=== PATIENT | female | born 2005 | race Caucasian/White ===

== ENCOUNTER 2025-02-10 14:39 | Emergency (ER) | payer OTHER, SELFPAY ==
--- NOTE | 2025-02-10 14:40 | ED_ITS ---
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 Mother reports known peanut allergy but denies history of anaphylaxis. Patient has an Epi-pen but did not have it with her, did not use prior to arrival. Took [address] to the ED. Denies shortness of breath, abdominal pain, nausea. No hives noted, no angioedema, no uvula edema, lungs clear throughout. MD complaint: lips tingling Onset (ago): minute(s) Related Data Previous Rx's ?Medication ?Instructions ?Recorded prednisone 20 mg tablet 20 mg PO DAILY #5 tabs 02/10/25 Allergies Allergy/AdvReac Type Severity Reaction Status Date / Time peanut Allergy Unknown Verified 02/10/25 14:42 Review of Systems Review of Systems: As per HPI Yes all other systems are reviewed and are negative Constitutional: Constitutional: Reports as per HPI Physical Exam ED Vital Signs: Vital Signs - 24 hr 02/10/25 14:41 Temperature 97.8 F Pulse Rate 68 Respiratory Rate 20 Blood Pressure 129/86 Pulse Oximetry 100 Oxygen Delivery Method Room Air BMI result Body Mass Index 20.7 Vital signs have been reviewed and appear to be correct. Blood pressure normal. Heart rate normal. Respiratory rate normal. Temperature normal. Oxygen saturation normal. Const General: cooperative, healthy appearing and no acute distress Orientation/consciousness: oriented to person, oriented to place, oriented to time and patient oriented x3 Limitations: no limitations HENMT Head: Yes normocephalic and Yes atraumatic Ears: external ears normal General nose exam: Normal external nose present and Normal nasal mucous membranes and turbinates present Face and sinus: Yes face symmetric Mouth: Normal oral and palatal mucosa present, lip normal, tongue normal, oropharynx normal, moist mucous membranes, no audible dysphonia, no drooling and no muffled voice Throat: Yes posterior oropharynx normal, Yes uvula midline and No uvular edema Eyes Pupils: Equal, round and reactive pupils present Neck Neck: Yes normal visual inspection and Yes supple Resp Effort & Inspection: normal respiratory effort and able to speak in complete sentences Auscultation: clear to auscultation bilaterally and no wheezes Cardio Rate: regular rate Rhythm: regular rhythm Heart sounds: S1 normal heart sound present and S2 normal heart sound present GI Palpation (GI): Soft to palpation and nontender Auscultation: normoactive bowel sounds General: Yes no CVA tenderness Back/Spine/Pelvis Back: no CVA tenderness Skin General skin exam: no rashes or lesions noted, elasticity normal and turgor normal Neuro General: oriented to person, oriented to place, oriented to time, patient oriented x3, moves all extremities, no focal motor deficits and CN's II-XI intact bilaterally Cranial nerves: Yes Equal, round and reactive pupils present Cognition (Neuro): normal cognition Extrem General: Yes full ROM, Yes no pedal edema and Yes no calf tenderness Psych Mental Status: mental status grossly normal Affect: normal affect Thought process: Normal thought process present Course Course Course Narrative: This is a rapid medical exam performed by Alejo Mckeon NP: Additional HPI, ROS, PE not included below will be deferred to primary provider. 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 Mother reports known peanut allergy but denies history of anaphylaxis. Took [address] to the ED. Denies shortness of breath, abdominal pain, nausea. No hives noted, no angioedema, no uvula edema, lungs clear throughout. Plan: famotidine and prednisone ordered, monitor Medications Administered Discontinued Medications Generic Name Dose Route Start Last Admin Trade Name Freq PRN Reason Stop Dose Admin Famotidine 20 mg 02/10/25 14:43 02/10/25 14:48 Famotidine 20 Mg Tablet PO 02/10/25 14:44 20 mg ONCE ONE Administration Prednisone 60 mg 02/10/25 14:43 02/10/25 14:48 Prednisone 20 Mg Tablet PO 02/10/25 14:44 60 mg ONCE ONE Administration Medical Decision Making Medical Decision Making MDM Narrative: Patient is a 19-year-old female presenting to the ED with grandmother and mother with complaint of tongue and throat feeling prickly, after eating peanuts [employer]IST. On exam patient is awake, A+Ox3, VS WNL, afebrile, normal neurological exam without focal deficits, physical exam findings as above. Given reported symptoms and physical exam findings, initial differential includes but is not limited to allergic reaction, oral allergy syndrome. Do not suspect anaphylaxis as patient has no respiratory compromise, is normotensive, no rash, no GI symptoms. Patient medicated self with cetirizine prior to arrival and given famotidine and pepcid in the ED, monitored for 1.5 hours with improvement in symptoms, no new symptoms. Feel patient is stable for discharge home. Advised mother patient can continue to take cetirizine at home. Discussed symptoms for which they should return to the ED/call 911. Patient and mother verbalized understanding of and agreement with plan. Differential Diagnosis Differential Diagnoses: The differential diagnosis associated with the presentation includes as per [facility] Admission/Observation Consideration of admission/observation: Escalation of care including admission/observation considered Patient would have been admitted to the hospital had their work up had any findings where hospital admission was appropriate and their clinical presentation warranted hospital admission. Independent Historian Clinical information obtained from an independent historian. History obtained from or confirmed by: Parent (Clinical information obtained from mother and grandmother who also confirmed patient's reported history) External Record Review External record reviewed: Inpatient record, Office record and Outpatient record Discharge Plan Discharge Clinical Impression: Allergic reaction Patient Disposition: Home, Self-Care Instructions: General Allergic Reaction (ED) Additional Instructions: You were evaluated in the emergency department today for an allergic reaction. You have been given medications to control your symptoms. You have been observed for several hours in the emergency department and you are stable for discharge at this time. You can take Zyrtec and Pepcid, which are available sviy-eog-egzlfea, to help control your symptoms at home. You have also been given a prescription for steroids, please take them as directed. Please schedule an appointment with your primary care physician for follow-up. Return to the emergency department if you experience rashes, difficulty breathing or swallowing, lip/mouth/tongue swelling, vomiting, or for any other concerning symptoms. Prescriptions: New prednisone 20 mg tablet 20 mg PO DAILY Qty: 5 0RF Print Language: Dominican
[2025-02-10 14:41] VITALS: BP 129/86; PULSE 68; RESP 20; TEMP 36.6; O2SAT 100; BMI 20.7
[2025-02-10] MEDS: Famotidine 20 MG TABLET PO (14:48)
[2025-02-10] MEDS: predniSONE 20 MG TABLET 60 MG PO (14:48)
[2025-02-10 16:23] VITALS: BP 104/67; PULSE 60; RESP 16; TEMP 36.6; O2SAT 98
--- OUTSIDE RECORDS SUMMARY | 2025-02-10 18:23 | XMS_ITS | Clinical Summary ---
Author Organization [place], [place] Address [address] [place] [address] Phone Care Team Providers Care Social Media Sr Strategy Manager Name Role Phone Sylvia Ragland MD Primary Care Provider [phone] Medications ENSKYCE 0.15-30 MG-MCG TABS Take 1 Tablet by mouth daily. 07/29/2023 Active Pantoprazole Sodium 20 mg TAB EC 08/04/2023 Active penicillin V potassium (VEETID) 500 mg tablet TAKE 1 TABLET BY MOUTH EVERY 8 HOURS FOR 10 DAYS 11/29/2023 Active sertraline (ZOLOFT) 50 mg tablet Take 50 mg by mouth daily. 10/18/2023 Active sertraline (ZOLOFT) 25 mg tablet TAKE ORALLY 3 TABLETS DAILY 11/18/2023 Active Active Problems Problem Noted Date Diagnosed Date Anxiety 12/12/2023 Viral exanthem 12/12/2023 Social History Tobacco Use Types Packs/Day Years Used Date Smoking Tobacco: Never Assessed Comments Unknown Sex and Gender Information Value Date Recorded Sex Assigned at Not on file Legal Sex Female 4:03 PM EST Gender Identity Not on file Sexual Orientation Not on file Last Filed Vital Signs Vital Sign Reading Time Taken Comments Blood Pressure - - Pulse 74 12/12/2023 12:08 PM EST Temperature 37.1 ??C (98.7 ??F) 12/12/2023 1 2:08 PM EST Respiratory Rate - - Oxygen Saturation 100% 12/12/2023 12: 08 PM EST Inhaled Oxygen Concentration - - Weight 60.7 kg (133 lb 12.8 oz) 024 12:08 PM EST Height 167.6 cm (5' 6 ) 11/29/2022 3:37 PM EST Body Mass Index 21.6 11/29/2022 3:37 PM EST Plan of Treatment Health Maintenance Due Date Last Done Comments WELLNESS VISIT 2007 HPV VACCINES NEMOURS (1 - 3-dose series) 2019 Lipid Panel Screening 2021 COVID-19 VACCINE ( season) 2024 10/23/2021, 03/09/2021, 02/16/2021 INFLUENZA VACCINE (PRIMARY CARE) (#1) 2024 08/14/2019, 08/08/2018, 08/07/2017, Additional history exists HEPATITIS B VACCINES (PRIMARY CARE) Completed 09/02/2005, 01/02/2005, 2004 HEPATITIS A VACCINES (PRIMARY CARE) Completed 03/24/2007, 09/04/2006 VARICELLA VACCINES (PRIMARY CARE) Completed 09/29/2008, 09/02/2005 MENINGOCOCCAL VACCINE (PRIMARY CARE) Aged Out No longer eligible based on patient's age to complete this topic Insurance Care Teams Social Media Sr Strategy Manager Relationship Specialty Start Date End Date Sylvia Ragland MD [address] [place] [address] [address] [place] [address] PCP - General Primary Care Pediatrics 10/27/22
--- OUTSIDE RECORDS SUMMARY | 2025-02-10 18:23 | XMS_ITS | Encounter Summary ---
Author Organization [facility] Address [address] [place] [address] Care Team Providers Care Hyperbaric Nurse Name Role Phone Mia Rios MD Primary Care Provider [phone] Encounter Details Date Type Department Care Team ([facility] st Contact Info) Description 03/18/2023 Abstract LG at [facility] [address] [place] [address] [place] [id number] Priscilla Diaz CMA Social History Tobacco Use Types Packs/Day Years Used Date Smoking Tobacco: Never Smokeless Tobacco: Never Tobacco Cessation:Counseling Given: Not Answered Alcohol Use Standard Drinks/Week Comments Never 0 (1 standard drink = 0.6 oz pur e alcohol) Comments Unknown Sex and Gender Information Value Date Recorded Sex Assigned at Not on file Legal Sex Female 8:10 AM EDT Gender Identity Not on file Sexual Orientation Not on file documented as of this encounter Plan of Treatment Not on file documented as of this encounter Visit Diagnoses Not on filedocumented in this encounter Care Teams Hyperbaric Nurse Relationship Specialty Start Date End Date Mia Rios MD [address] [place] [address] [place] [address] PCP - General Family Practice 03/18/23 documented as of this encounter
--- OUTSIDE RECORDS SUMMARY | 2025-02-10 18:23 | XMS_ITS | Clinical Summary ---
Author Organization [facility] Address [address] [place] [address] Care Team Providers Care Elevator Repair Mechanic Name Role Phone Michael Person MD Primary Care Provider [phone] Allergies Active Allergy Reactions Criticality Noted Date Comments Peanut 06/04/2023 Medications sertraline (ZOLOFT) 50 mg tablet Take 50 mg by mouth daily. 3 Active EPINEPHrine (EPIPEN) 0.3 mg/0.3 mL injection syringe EPINEPHrine 0.3 MG/0.3ML Injection Solution Auto-injector QTY: 0 Days: 0 Refills: 0 Written: 06/04/23 Patient Instructions: 3 Active ENSKYCE 0.15-0.03 mg per tablet Take 1 tablet by mouth daily. 3 Active pantoprazole (PROTONIX) 20 mg EC tablet 3 Active Active Problems Problem Noted Date Diagnosed Date Periodic headache syndrome, not intractable 02/2024 Gastroesophageal reflux disease without esophagi tis 08/04/2023 10/31/2023 OCD (obsessive compulsive disorder) Anxiety Family History Medical History Relation Name Comments Hyperlipidemia Biological Father Breast cancer Biological Mother Parkinsonism Maternal Grandfather Heart disease Paternal Grandfather Breast cancer Paternal Grandmother Relation Name Status Comments Biological Father Alive Biological Mother Alive Maternal Grandfather Paternal Grandfather Paternal Grandmother Social History Tobacco Use Types Packs/Day Years Used Date Smoking Tobacco: Never Smokeless Tobacco: Never Alcohol Use Standard Drinks/Week Comments Yes 0 (1 standard drink = 0.6 oz pur e alcohol) very rare Comments Unknown Sex and Gender Information Value Date Recorded Sex Assigned at Not on file Legal Sex Female 1:13 AM EST Gender Identity Not on file Sexual Orientation Not on file Occupation Industry Job Start Date Job End Date [employer] Not on file Not on file Not on file Last Filed Vital Signs Vital Sign Reading Time Taken Comments Blood Pressure 100/60 10/31/2023 10:58 AM EST Pulse 88 10/31/2023 10:58 AM EST Temperature 36.7 ??C (98 ??F) 10/31/2023 10:58 AM EST Respiratory Rate 14 10/31/2023 10:58 AM EST Oxygen Saturation 98% 10/31/2023 10:58 AM EST Inhaled Oxygen Concentration - - Weight 58.7 kg (129 lb 6.4 oz) 10/31/2023 10:58 AM EST Height 166.4 cm (5' 5.5 ) 10/31/2023 10:58 AM ES T Body Mass Index 21.21 10/31/2023 10:58 AM EST Plan of Treatment Upcoming Encounters Date Type Department Care Team (Late st Contact Info) Description 03/18/2025 10:30 AM EDT Office Visit [facility] [address] [place] [address] Michael Person MD [address] [facility] [address] [place] [address] Health Maintenance Due Date Last Done Comments Depression Screening 2016 HIV Screening 2017 HPV Vaccines (1 - 3-dose series) 2019 Meningococcal B (1 of 2 - Standard) 2020 Hepatitis C Screening 2022 DTaP, Tdap, and Td Vaccines (1 - Tdap) 2023 Hepatitis B Vaccines (1 of 3 - 19+ 3-dose series) 2023 COVID-19 Vaccine (1 - 2023-2 5 season) 2024 Influenza Vaccine (Season Ended) 2025 Zoster Vaccine (1 of 2) 2054 RSV Vaccine (1 - 1-dose 75+ series) 2079 HIB Vaccines Aged Out No longer eligi ble based on patient's age to complete this topic IPV Vaccines Aged Out No longer eligi ble based on patient's age to complete this topic Meningococcal ACWY Aged Out No longer eligible based on patient's age to complete this topic Pneumococcal Aged Out No longer eligi ble based on patient's age to complete this topic RSV <20 months Aged Out No longer yo gible based on patient's age to complete this topic Care Teams Elevator Repair Mechanic Relationship Specialty Start Date End Date Michael Person MD [address] [facility] [address] [place] [address] PCP - General Internal Medicine 10/31/23
--- OUTSIDE RECORDS SUMMARY | 2025-02-10 18:23 | XMS_ITS ---
Author Organization [facility] Address [address] [place] [address] Care Team Providers Care Shift Boss Name Role Phone MariliaWisammingo Primary Care Provider Solomon Phillips [phone] REASON FOR VISIT 04/05/24 PN 8.43 (04/14) Encounters Encounter Location Date Provider Diagnosis [facility] [address] [place] [address] 04/08/2024 A Aureliano Be Plan Of Treatment Next Appt Details Provider Name:Solomon kurtz, 03/15/2025 01:30:00 PM, [address], [address], [place], [address], Progress Notes * Jessika QUIROZ MDOB:2005 (18 yo F)Acc No.[id number]:04/08/2024 Patient:?Jessika QUIROZ :2005???Age:18 Y???Sex:Female Address:[address] [place] [address] * true * Date:? Generated for Printi ng/Fateresog/eTransmitting on:?02/10/2025 06:23 PM EDT
--- OUTSIDE RECORDS SUMMARY | 2025-02-10 18:23 | XMS_ITS | Patient Health Record ---
Author Organization [facility] Address [address] [place] [address] Care Team Providers Care Volcanologist Name Role Phone Michael Person M.D. Primary Care Provider Omar Garcia [phone] Allergies Allergen (clinical drug ingredient) Drug/Non Drug Allergy documented on EMR Reaction Allergy Type Onset Date Status peanut allergenic extract Peanut (Diagnostic) Unknown Drug Allergy Active Reason For Referral No Information Medications Medication SIG (Take, Route, Fr equency, Duration) Notes Start Date End Date Status Zeasorb-AF 2 % According to directi ons provided on package Externally Twice a day for 30 days 03/18/2024 Active Naftin 2 % 1 application Fast Food Worker ally Once a day for 14 day(s) 03/18/2024 Active Zoloft 100 MG 1 tablet Orally Once a day Active Domeboro 16% as directed External ly Daily for 30 days 03/18/2024 Active Ketoconazole 2 % 1 application to aff ected area Externally Twice a day for 30 days 03/18/2024 Active Social History Tobacco Use: Social History Observation Description Date Details (start date - stop date) Never Smoker NA - NA Tobacco Use/Smoking Question Answer Notes Are you a nonsmoker Problems Problem Type SNOMED Code ICD Code Onset Dates Problem Status W/U Status Risk Notes Problem 823329303 Hammer toe of right foot (M20.41) Active confirmed Problem 7386449 Tinea pedis of both feet (B35.3) Active confirmed Problem 567155551 Bullae (R23.8) Active confirmed Problem 531162868 Onychomycosis (B35.1) Active confirmed Vital Signs BMI Percentile 61.09 % 03/18/2024 Height 65inches in 03/18/2024 Weight 136 lbs 03/18/2024 BMI 22.63 kg/m2 03/18/2024 Encounters Encounter Location Date Provider Diagnosis [facility] [address] [place] [address] 03/18/2024 Omar Louise Tinea pedis of both feet B35.3 ; Onychomycosis B35.1 ; Hammer toe of right foot M20.41 and Bullae R23.8 Assessments Encounter Date Diagnosis (ICD Code) Assessment Notes Treatment Notes Treatment Clinical Notes Section Notes 03/18/2024 Tinea pedis of both feet (ICD-10 - B35.3) 03/18/2024 Onychomycosis (ICD-10 - B35.1) 03/18/2024 Hammer toe of right foot (ICD-10 - M20.41) 03/18/2024 Bullae (ICD-10 - R23.8) Plan Of Treatment No Information Insurance Providers Payer Name Payer Address Payer Phone Subscriber Number Group Number Insured Name Patient Relationship to Insured Coverage Start Date Coverage End Date [facility] [address] [place] [address] [phone] [id number] Jessika Quiroz Self - patient is the insured 8 Medical (General) History Surgical History Surgery Date(Month/Year) denies previous surgery Hospitalization History Reason Date(Month/Year) see above
--- OUTSIDE RECORDS SUMMARY | 2025-02-10 18:23 | XMS_ITS ---
Author Organization [facility] Address [address] [place] [address] Care Team Providers Care Patient Services Coordinator Name Role Phone Marilia John Primary Care Provider Solomon Phillipsffrey Unavailable [phone] Allergies Allergen (clinical drug ingredient) Drug/Non Drug Allergy documented on EMR Reaction Allergy Type Onset Date Status peanut allergenic extract Peanut (Diagnostic) anaphylaxis Drug Allergy Active Results Component Value Reference Range Notes W296-AyL Peanut Reviewed date:04/08/2024 08:41:56 AM Interpretation: Performing Lab:[facility] [id number], Phone - [phone], Director - MDJodry Notes/Report: C053-LwZ Peanut 8.43 Class IV kU/L IgE Peanut Component Profile Reviewed date:04/08/2024 08:41:56 AM Interpretation: Performing Lab:[facility], [address] [place] [id number], Phone - [phone], Director - MDJodry Notes/Report: Class Description Levels of Specific IgE Class Description of Class ----- < 0.10 0 Negative 0.10 - 0.31 0/I Equivocal/Low 0.32 - 0.55 I Low 0.56 - 1.40 II Moderate 1.41 - 3.90 III High 3.91 - 19.00 IV Very High 19.01 - 100.00 V Very High >100.00 Very High K564-NyQ Nataliia h 1 0.75 Class II kU/L D807-DrM Nataliia h 2 1.20 Class II kU/L L798-XbP Nataliia h 3 <0.10 Class 0 kU/L C115-IhU Nataliia h 6 1.01 Class II kU/L Z365-LrY Nataliia h 8 <0.10 Class 0 kU/L K806-QwO Nataliia h 9 0.92 Class II kU/L REASON FOR VISIT last visit 07/2022, food allergy Medications Medication SIG (Take, Route, Frequency, Duration) Notes Start Date End Date Status Zoloft 100 MG 1 tablet Orally Once a day Active Auvi-Q 0.3 mg use as directed for anaphylaxis IM once for 30 days Active EPINEPHrine 0.3 MG/0.3ML as directed Inj ection as needed for 30 days 07/30/2022 Not-Taking Zyrtec allergy childrens 10 MG 1 tablet at bedtime orally Once daily for 30 days Active EPINEPHrine 0.3 MG/0.3ML as directed Inj ection as needed for 30 days Active Vital Signs Blood pressure systolic 109 mm Hg 03/16/20 24 Blood pressure diastolic 61 mm Hg 024 Heart Rate 65 /min 03/16/2024 Height 65.1 in 03/16/2024 Weight 136 lbs 03/16/2024 BMI 22.56 kg/m2 03/16/2024 BMI Percentile 60.37 % 03/16/2024 Procedures Procedure Date Ordered Date Performed Result Body Sit e SKIN TEST, PRICK 03/16/2024 N/A Encounters Encounter Location Date Provider Diagnosis [facility] [address] [place] [address] 03/16/2024 A Aureliano Be Dermatitis due to ingested food L27.2 and Allergy to peanuts Z91.010 Assessments Encounter Date Diagnosis (ICD Code) Assessment Notes Treatment Notes Treatment Clinical Notes Section Notes 03/16/2024 Dermatitis due to ingested food (ICD-10 - L27.2) .......... .............Ski n testing 07/30/22 ....peanut 15mm..... .............Ski n testing today .03/16/24......pe anut 8mm.. ..... skin test small ; will order RAST/lab test, and administer diagnostic oral ingestion challenge if labs indicate it is safe to do so .(otherwise will recheck s.t. 02/2025)......... ... .... ............ Strictly avoid _ __ _-peanut_ _ _ and have an EPIPEN Twinpack available for emergency use at all times, in case of accidental ingestion and reaction develops. If accidental ingestion occurs, but NO symptoms develop, watch/monitor closely for several hours, DO NOT administer any medications (have the EPIPEN available). If accidental ingestion occurs, and symptoms develop, immediately administer the EPIPEN, give benadryl, and call 911 (Epinephrine will only last ~20 minutes,, and symptoms may redevelop at that time _ _ if you are not in the ER by then, administer the second EPIPEN). ........... ((((( INFO RE: EPINEPHRINE SAFETY: Epinephrine is safe, and you already have epinephrine in your body Epinephrine is a naturally occurring hormone. It is the hormone that is part of our xtsbu-wh-gdssql response. When you are scared or excited, and also when you are exercising, your epinephrine levels surge, but even when you sleep, there is a little epinephrine circulating in your body. An injection from your epinephrine device will increase your level of epinephrine to the range seen under stressful circumstances. Since you have at some point in your life experienced stress, you have already been exposed to the effects of high levels of epinephrine. If you were given the injection right now, all that would likely happen is that your heart rate and blood pressure would increase to a moderate degree and that you might feel slightly shaky. Epinephrine is metabolized very quickly, and you would not feel this effect for long. _ __ __ _ Why You Should Go to the Emergency Room (ER) After Using the Epinephrine: you should go to the ER after using your epinephrine device. That\'s not because of the epinephrine; it\'s because the allergic reaction probably requires further monitoring. Many patients also need more than one dose of epinephrine or other emergency treatments; that may be due to the severity of the allergic reaction or simply because the device was not used correctly (the most common mistake is not holding the device against your thigh for the time required for the full dose of medication to be delivered). So a trip to the ER is the safest thing to do after using epinephrine. _ _- 03/16/2024 Allergy to peanuts (ICD-10 - Z91.010) Plan Of Treatment Medication Medication Name Sig Start Date Stop Date Notes Auvi-Q 0.3 mg use as directed for anaphylaxis IM once for 30 days Zyrtec allergy childrens 10 MG 1 tablet at bedtime orally Once daily for 30 days EPINEPHrine 0.3 MG/0.3ML as directed Inj ection as needed for 30 days Treatment Notes Assessment Notes Dermatitis due to ingested food .......... .............Skin testing 07/30/22 ....peanut 15mm..... .............Skin testing today .03/16/24......peanut 8mm.. ..... skin test small ; will order RAST/lab test, and administer diagnostic oral ingestion challenge if labs indicate it is safe to do so .(otherwise will recheck s.t. 02/2025)............ .... ............ Strictly avoid _ __ _-peanut_ _ _ and have an EPIPEN Twinpack available for emergency use at all times, in case of accidental ingestion and reaction develops. If accidental ingestion occurs, but NO symptoms develop, watch/monitor closely for several hours, DO NOT administer any medications (have the EPIPEN available). If accidental ingestion occurs, and symptoms develop, immediately administer the EPIPEN, give benadryl, and call 911 (Epinephrine will only last ~20 minutes,, and symptoms may redevelop at that time _ _ if you are not in the ER by then, administer the second EPIPEN). ........... ((((( INFO RE: EPINEPHRINE SAFETY: Epinephrine is safe, and you already have epinephrine in your body Epinephrine is a naturally occurring hormone. It is the hormone that is part of our jxmeu-bi-csjrue response. When you are scared or excited, and also when you are exercising, your epinephrine levels surge, but even when you sleep, there is a little epinephrine circulating in your body. An injection from your epinephrine device will increase your level of epinephrine to the range seen under stressful circumstances. Since you have at some point in your life experienced stress, you have already been exposed to the effects of high levels of epinephrine. If you were given the injection right now, all that would likely happen is that your heart rate and blood pressure would increase to a moderate degree and that you might feel slightly shaky. Epinephrine is metabolized very quickly, and you would not feel this effect for long. _ __ __ _ Why You Should Go to the Emergency Room (ER) After Using the Epinephrine: you should go to the ER after using your epinephrine device. That\'s not because of the epinephrine; it\'s because the allergic reaction probably requires further monitoring. Many patients also need more than one dose of epinephrine or other emergency treatments; that may be due to the severity of the allergic reaction or simply because the device was not used correctly (the most common mistake is not holding the device against your thigh for the time required for the full dose of medication to be delivered). So a trip to the ER is the safest thing to do after using epinephrine. _ _- Pending Test Test Name Order Date SKIN TEST, PRICK 03/16/2024 Next Appt Details Follow Up: 1 Year, Reason: a llergy recheck,skin test - STOP ALL ANTIHISTAMINES 1 WEEK PRIOR TO APPOINTMENT Provider Name:Solomon kurtz, 03/15/2025 01:30:00 PM, [address] [facility], [address], [place], [address], Procedure Notes * Category Sub-Category Detail Notes Allergy testing Skin test result: peanut 8mm Progress Notes * Jessika QUIROZ MDOB:2005 (18 yo F)Acc No.[id number]:03/16/2024 Progress Notes Patient:?Jessika QUIROZ Provider:?Alex Be M.D. :2005???Age:18 Y???Sex:Female D ate:03/16/2024 Address:[address] [place] [address], [facility] Pcp:John Capellan Subjective: * Chief Complaints: * ???Last visit 07/2022Food dirk porras * HPI: ???Food Allergy / reaction:?last visit 07/2022. Patient has been avoiding foods of concern with no accidental exposures or ingestions since last visit; has Epipen on hand for emergency use. ((......peanut.......)). * ROS:?General/Constitutional:?Fatigue?denies.?Fever?denies.?Allergy/Immunology:?Immune problems?denies.?Frequent infection?denies.?Ophthalmologic:?Redness?denies.?Infection?denies.?Discharge?denies.?ENT:?Sinusitis?denies.?Snoring?denies.?Sleep apnea?denies.?Respiratory:?Pneumonia?denies.?Bronchitis?denies.?Cardiovascular:?chest pain?denies.?palpitations?denies.?Gastrointestinal:?Reflux?denies.?Abdominal pain?denies.?Musculoskeletal:?Muscle pain?denies.?Joint pain?denies.?Skin:?Infection?denies.?Hives?denies.?Neurologic:?Behavioral problems?denies.?Headache?denies.? * Medical History:? * Surgical History:?cieradom mera 03/2021 * Hospitalization/Major Diagno stic Procedure:?Denies Past Hospitalization * Medications:?TakingZoloft 10 0 MG Tablet 1 tablet Orally Once a day Taking Zoloft 100 MG Tablet 1 tablet Orally Once a day Not-Taking/PRNAuvi-Q 0.3 mg injection use as directed for anaphylaxis IM once Zyrtec allergy childrens 10 MG Chewable tablet 1 tablet at bedtime orally Once daily EPINEPHrine 0.3 MG/0.3ML Solution Auto- injector as directed Injection as needed Medication List reviewed and reconciled with the patientNot-Taking/PRN Auvi-Q 0.3 mg injection use as directed for anaphylaxis IM once Not-Taking/PRN Zyrtec allergy childrens 10 MG Chewable tablet 1 tablet at bedtime orally Once daily Not-Taking/PRN EPINEPHrine 0.3 MG/0.3ML Solution Auto-injector as directed Injection as needed Medication List reviewed and reconciled with the patient * Allergies:?Peanut (Diagnosti c): anaphylaxis - Allergyno[Allergies Verified] Objective: * Vitals:?Ht: 65.1 in, Wt:136, HR:65/min, BP:109/61mm Hg, Initials: dek, Ht %: 62.42 %, BMI %: 60.37 %, BMI:22.56Index, Wt %: 64.47 %. * Examination: ???General Examination: ?GENERAL APPEARANCE:?alert, in no acute distress.?EYES:?no discharge, conjunctivae clear, lids normal, pupils equal, iris normal bilaterally.?EARS:?tympanic membranes normal, external auditory canals normal.?NOSE:?nasal mucosa/turbinates non-edematous, septum intact, septum midline.?THROAT:?oropharynx normal.?NECK/THYROID:?normal appearance and palpation, thyroid normal.?LYMPH NODES:?no cervical adenopathy.?HEART:?regular rate and rhythm, no murmurs, heart sounds normal, no peripheral edema.?LUNGS:?clear to auscultation bilaterally, no increased respiratory effort.?ABDOMEN:?non-tender, no masses, no hepatosplenomegaly.?MUSCULOSKELETAL:?normal gait/station for age, digits/nails normal with no cyanosis or clubbing.?SKIN:?palpation normal, warm and dry, no rashes or lesions.? Assessment: * Assessment: 1.?Dermatitis due to ingeste d food - L27.2 (Primary)?2.?Allergy to peanuts - Z91.010? Plan: * Treatment: 2.?Allergy to peanuts?LAB: Q124-WvJ Peanut ?LAB: IgE Peanut Component Profile ?Procedure: SKIN TEST, PRICK 3.?Others? Refill Auvi-Q injection, 0.3 mg, use as directed for anaphylaxis, IM, once, 30 days, 1 box, Refills 0;?Refill Zyrtec allergy childrens Chewable tablet, 10 MG, 1 tablet at bedtime, orally, Once daily, 30 days, 30, Refills 5;?Start EPINEPHrine Solution Auto-injector, 0.3 MG/0.3ML, as directed, Injection, as needed, 30 days, 2 Packs, Refills 1.?? * Procedures:?Allergy testing:?Skin test result:?peanut 8mm.? * Procedure Codes:?43358 SKIN TEST, PRICK, Units: 3.00 * Follow Up:?1 Year (Reason: a llergy recheck,skin test - STOP ALL ANTIHISTAMINES 1 WEEK PRIOR TO APPOINTMENT) * * Sign off status: Completed true * Provider:?Alex Be M.D. Date: ?03/16/2024 Generated for Mitra meza/Dorcas/Alirezasmitting on:?02/10/2025 06:23 PM EDT History and Physical Notes * HPI (History of Present Illness) Category Sub-Category Detail Notes Category Not es Food Allergy / reaction last visit 07/2022. Patient has been avoiding foods of concern with no accidental exposures or ingestions since last visit; has Epipen on hand for emergency use. ((......peanut.......)) Examination Category Sub-Category Detail Notes Category Not es General Examination GENERAL APPEARANCE: alert, in no a cute distress EYES: no discharge, conjun ctivae clear, lids normal, pupils equal, iris normal bilaterally EARS: tympanic membranes n ormal, external auditory canals normal NOSE: nasal mucosa/turbina tiburcio non-edematous, septum intact, septum midline THROAT: oropharynx normal NECK/THYROID: normal appearance an d palpation, thyroid normal HEART: regular rate and rhy thm, no murmurs, heart sounds normal, no peripheral edema LUNGS: clear to auscultatio n bilaterally, no increased respiratory effort ABDOMEN: non-tender, no julius s, no hepatosplenomegaly SKIN: palpation normal, wa rm and dry, no rashes or lesions MUSCULOSKELETAL: normal gait/station for age, digits/nails normal with no cyanosis or clubbing LYMPH NODES: no cervical adenopat hy
--- OUTSIDE RECORDS SUMMARY | 2025-02-10 18:24 | XMS_ITS | Patient Health Record ---
Author Organization [facility] Address [address] [place] [address] Care Team Providers Care Stock Control Supervisor Name Role Phone Caseyharley John Primary Care Provider Solomon Phillips Aureliano Unavailable [phone] Allergies Allergen (clinical drug ingredient) Drug/Non Drug Allergy documented on EMR Reaction Allergy Type Onset Date Status peanut allergenic extract Peanut (Diagnostic) anaphylaxis Drug Allergy Active Results Component Value Reference Range Notes D853-FyI Peanut Reviewed date:04/08/2024 08:41:56 AM Interpretation: Performing Lab:[facility], [address] [place] [id number], Phone - [phone], Director - MDJodry Notes/Report: I300-UqC Peanut 8.43 Class IV kU/L IgE Peanut Component Profile Reviewed date:04/08/2024 08:41:56 AM Interpretation: Performing Lab:[facility], [address] [place] [id number], Phone - [phone], Director - MDJodry Notes/Report: Class Description Levels of Specific IgE Class Description of Class ----- < 0.10 0 Negative 0.10 - 0.31 0/I Equivocal/Low 0.32 - 0.55 I Low 0.56 - 1.40 II Moderate 1.41 - 3.90 III High 3.91 - 19.00 IV Very High 19.01 - 100.00 V Very High >100.00 Very High J754-MbH Nataliia h 1 0.75 Class II kU/L I188-KpH Nataliia h 2 1.20 Class II kU/L V956-JjU Nataliia h 3 <0.10 Class 0 kU/L W059-BpT Nataliia h 6 1.01 Class II kU/L Q882-BiG Nataliia h 8 <0.10 Class 0 kU/L U542-PzE Nataliia h 9 0.92 Class II kU/L Reason For Referral No Information Medications Medication SIG (Take, Route, Frequency, Duration) [...] ection as needed for 30 days Active Problems Problem Type SNOMED Code ICD Code Onset Dates Problem Status W/U Status Risk Notes Problem [id number] Generalized skin eruption due to drugs and medicaments taken internally (L27.0) Active confirmed Problem Ingestion dermatitis caused by food (072804381) Dermatitis due to ingested food (L27.2) Active confirmed Problem Allergy to peanuts (92720513) Allergy to peanuts (Z91.010) Active confirmed Problem Adverse reaction to drug (81519776) Adverse effect of penicillins, subsequent encounter (T36.0X5D) Active confirmed Vital Signs Heart Rate 65 /min 03/16/2024 Blood pressure diastolic 61 mm Hg 03/16/2024 Height 65.1 in 03/16/2024 BMI Percentile 60.37 % 03/16/2024 Blood pressure systolic 109 mm Hg 03/16/2024 Weight 136 lbs 03/16/2024 BMI 22.56 kg/m2 03/16/2024 Procedures Procedure Date Ordered Date Performed Result Body Sit e SKIN TEST, PRICK 03/16/2024 N/A Encounters Encounter Location Date Provider Diagnosis [facility] [address] [place] [address] 03/16/2024 A Aureliano Be Dermatitis due to ingested food L27.2 and Allergy to peanuts Z91.010 [facility] [address] [place] [address] 04/08/2024 Solomon Be [facility] [address] [place] [address] 04/07/2024 Solomon Be Assessments Encounter Date Diagnosis (ICD Code) Assessment [...] the hormone that is part of our hkdow-ep-bhmxpl response. When you are scared or excited, [...] peanuts (ICD-10 - Z91.010) Plan Of Treatment Pending Test Test Name Order Date SKIN TEST, PRICK 10/10/2015 SKIN TEST, PRICK 11/25/2016 SKIN TEST, PRICK 04/13/2018 SKIN TEST, PRICK 04/12/2019 SKIN TEST, PRICK 06/19/2021 SKIN TEST, PRICK 07/30/2022 SKIN TEST, PRICK 03/16/2024 INGESTION (FOOD) CHALLENGE TESTING FIRST 2 HOURS 06/21/2021 SKIN TEST, PRICK/ID (Drug/Biological) [id number] Peanut 04/17/2020 IgE Peanut Component Profile 04/17/2020 Next Appt Details Provider Name:Solomon kurtz, 03/15/2025 01:30:00 PM, [address], [address], [place], [address], Insurance Providers Payer Name Payer Address Payer Phone Subscriber Number Group Number Insured Name Patient Relationship to Insured Coverage Start Date Coverage End Date [facility] [address] [place], [place] [id number] Matt Quiroz Natural Child - Insured has Financial Responsibility 4 Medical (General) History Medical History History ICD Code pt born full-term, no complications: Yes Stinging Insect History: Never been stun g speech therapy, lisp Depression, OCD Surgical History Surgery Date(Month/Year) wisdom teeth 03/2021
--- OUTSIDE RECORDS SUMMARY | 2025-02-10 18:24 | XMS_ITS ---
Author Organization [facility] Address [address] [place] [address] Care Team Providers Care Research Statistician Name Role Phone John Capellan Primary Care Provider Solomon Phillips [phone] REASON FOR VISIT blood work Encounters Encounter Location Date Provider Diagnosis [facility] [address] [place] [address] 04/07/2024 Solomon Be Plan Of Treatment Next Appt Details Provider Name:Solomon kurtz, 03/15/2025 01:30:00 PM, [address], [address], [place], [address], Progress Notes * Jessika QUIROZ MDOB:2005 (18 yo F)Acc No.[id number]:04/07/2024 Patient:?Jessika QUIROZ :2005???Age:18 Y???Sex:Female Address:[address] [place] [address] * true * Date:? Generated for Printi ng/Faxing/eTransmitting on:?02/10/2025 06:24 PM EDT
--- OUTSIDE RECORDS SUMMARY | 2025-02-10 18:24 | XMS_ITS ---
Author Organization [facility] Address [address] [place] [address] Care Team Providers Care Expressive Art Therapist Name Role Phone Michael Person M.D. Primary Care Provider Omar Garcia [phone] Allergies Allergen (clinical drug ingredient) Drug/Non Drug Allergy documented on EMR Reaction Allergy Type Onset Date Status peanut allergenic extract Peanut (Diagnostic) Unknown Drug Allergy Active REASON FOR VISIT Calluses Medications Medication SIG (Take, Route, Fr equency, Duration) Notes Start Date End Date Status Zeasorb-AF 2 % According to directi ons provided on package Externally Twice a day for 30 days 03/18/2024 Active Naftin 2 % 1 application Leather Cartridge Belt Maker ally Once a day for 14 day(s) [...] Problem Status W/U Status Risk Notes Problem 3318164 Tinea pedis of both feet (B35.3) Active confirmed Problem 152818421 Onychomycosis (B35.1) Active confirmed Problem 136997971 Hammer toe of right foot (M20.41) Active confirmed Problem [id number] Bullae (R23.8) Active confirmed Vital Signs Height 65inches in 03/18/2024 Weight 136 lbs 03/18/2024 BMI 22.63 kg/m2 03/18/2024 BMI Percentile 61.09 % 03/18/2024 Encounters Encounter Location Date Provider Diagnosis [facility] [address] [place] [address] 03/18/2024 Omar Louise Tinea pedis of both [...] Bullae (ICD-10 - R23.8) Plan Of Treatment Medication Medication Name Sig Start Date Stop Date Notes Zeasorb-AF 2 % According to directi ons provided on package Externally Twice a day for 30 days 03/18/2024 Naftin 2 % 1 application Leather Cartridge Belt Maker ally Once a day for 14 day(s) 03/18/2024 Domeboro 16% as directed Externally Daily for 30 days 02/25 Ketoconazole 2 % 1 application to aff ected area Externally Twice a day for 30 days 03/18/2024 Next Appt Details Follow Up: prn, Reason: Procedure Notes * Category Sub-Category Detail Notes I & D Discussion/Consent A discussion about the procedure took place Anesthesia Topical anesthesia w as given to the area Prep The abscessed area w as prepped with an alcohol scrub Procedure The site was incised and drained Bandage A dry dressing was a pplied to the area Instructions Instr. pt. to redres s area with antibiotic ointment Culture Not enough purulence was present to culture Soak Instr. the pt. to soak their foot in epsom salt and redress with ABX ointment daily. If erythema does not resolve in a few days or pain returns to come back itno the office Nail Debridement Fungal Nails Debrided Nails sha rply debrided in thickness and length Trimmed long nails Remaining nails were trimmed in length Corns/Calluses Debridement All corns and ca lluses were debrided in thickness Progress Notes * Jessika QUIROZDOB:2005 ( 18 yo F)Acc No.[id number]:03/18/2024 Progress Notes Patient:?Jessika QUIROZ Appointment Provider:?Omar Louise DPM :2005???Age:18 Y???Sex:Female D ate:03/18/2024 Address:[address] [place] [address] Pcp:Michael Person M.D. Subjective: * Chief Complaints: * ???Calluses * HPI: ???Complains of Today:?Symptoms?Jessika came into the office wearing flip-flops. She is here for thick calluses, mostly on all of her toes, tops. She also thinks that she might have had a fungus on both fifth digits, she had some discoloration.? taken by KEITH. * ROS:?Cardiovascular:?Chest pain?denies.?Palpitations?denies.?ENT:?Difficulty swallowing?denies.?Dry mouth?denies.?Ringing in the ears?denies.?Gastrointestinal:?Heartburn?denies.?Nausea?denies.?Vomiting?denies.?General/Constitutional:?Change in appetite?denies.?Headache?denies.?Genitourinary:?Blood in urine?denies.?Difficulty urinating?denies.?Musculoskeletal:?Joint stiffness?denies.?Leg cramps?denies.?Neurologic:?Dizziness?denies.?Loss of strength?denies.?Tingling/Numbness?denies.?Psychiatric:?Dementia?denies.?Denies?Anxiety,?Denies.?Respiratory:?Cough?denies.?Shortness of breath ?denies.?Skin:?Skin cancer?denies.?Skin lesion(s)?denies.? * Medical History:? * Surgical History:?denies pre vious surgery * Hospitalization/Major Diagno stic Procedure:?see above * Family History:?Mother: eduardo peguero.?Father: alive.?2 brother(s) - healthy. .? * Social History:?Tobacco Use:?Tobacco Use/Smoking?Are you a?nonsmoker.? * Medications:?TakingZoloft 10 0 MG Tablet 1 tablet Orally Once a day Medication List reviewed and reconciled with the patientTaking Zoloft 100 MG Tablet 1 tablet Orally Once a day Medication List reviewed and reconciled with the patient * Allergies:?Peanut (Diagnosti c)no[Allergies Verified] Objective: * Vitals:?Ht: 65inches, Wt:136 , BMI:22.63, Wt %: 64.47, BMI %: 61.09, Ht %: 60.95. * Examination: ???PODIATRY: ?VASCULAR PEDAL PULSES:?Pedal Pulses were palpable B/L.?DERMATOLOGICAL:?No open ulcerations, interspaces were dry and clean, heels were not broken down. No edema noted to feet and ankles. Skin turgor was fair and no telangiectasias were noted. ?Maceration noted to the3rd interspace B/L. ?Blisters to the 2nd toes B/L.?ORTHOPEDIC:?Muscle strength was intact to the Extensor Hallucis Longus, Flexor Hallucis Longus, Tibialis Anterior, Achilles Tendon, and Posterior Tibial Tendon. Range of motion was intact to all joint and tendons of the foot and ankle. ?Her 2nd toe was longer then her hallux. ?Digiti quinti varus.?THE FOLLOWING NAILS WERE THICKENED, YELLOWED AND LUSTERLESS?Right- 5th .?CALLUS?1st IPJ 2nd PIPJ 3rd PIPJ B/L .?NEUROLOGICAL?Sharp/Dull/Proprioception is intact, Deep tendon reflexes to the patella and achilles were intact bilaterally, Able to detect 5.0 Cameron- Lamberto monofilament wire.? Assessment: * Assessment: 1.?Tinea pedis of both feet - B35.3 (Primary)?2.?Onychomycosis - B35.1?3.?Hammer toe of right foot - M20.41?4.?Bullae - R23.8? Plan: * Treatment: * Procedures:?Corns/Calluses:?Debridement?All corns and calluses were debrided in thickness.?I & D:?Discussion/Consent?A discussion about the procedure took place .?Anesthesia?Topical anesthesia was given to the area.?Prep?The abscessed area was prepped with an alcohol scrub.?Procedure?The site was incised and drained.?Bandage?A dry dressing was applied to the area.?Instructions?Instr. pt. to redress area with antibiotic ointment.?Culture?Not enough purulence was present to culture.?Soak Instr. the pt. to soak their foot in epsom salt and redress with ABX ointment daily.If erythema does not resolve in a few days or pain returns to come back itno the office.?Nail Debridement:?Fungal Nails Debrided?Nails sharply debrided in thickness and length.?Trimmed long nails?Remaining nails were trimmed in length.? * Procedure Codes:? * Preventive Medicine:? ??Counseling:?PCP Statement?[facility] strongly recommends that you visit a Primary Care Provider (PCP) regularly. Your PCP can help you implement the recommendations we gave you today, coordinate care among your specialists, as well as make sure you are up to date with wellness exams, immunizations and preventive screenings. Your PCP can also help when you are feeling sick, potentially avoiding the need for urgent care or emergency department visits. For these reasons, it is important that you follow up with your PCP at least annually or more often based upon your medical conditions.If you do not have a PCP, please call [facility] ( ) or go to [email or web address]]for help with finding one..? * Follow Up:?prn * * Sign off status: Completed true * Appointment Provider:?Lita Louise DPM Date:?03/18/2024 Generated for Printing/[employer]g/eTransmitting on:?02/10/2025 06:23 PM EDT History and Physical Notes * HPI (History of Present Illness) Category Sub-Category Detail Notes Category Not es Complains of Today Symptoms Jessika came int o the office wearing flip-flops. She is here for thick calluses, mostly on all of her toes, tops. She also thinks that she might have had a fungus on both fifth digits, she had some discoloration taken by JS Examination Category Sub-Category Detail Notes Category Not es PODIATRY VASCULAR PEDAL PULSES: Pedal Pulses were palpable B/L DERMATOLOGICAL: No open ulcerations, interspaces were dry and clean, heels were not broken down. No edema noted to feet and ankles. Skin turgor was fair and no telangiectasias were noted. Maceration noted to the3rd interspace B/L. Blisters to the 2nd toes B/L NEUROLOGICAL Sharp/Dull/Proprioce ption is intact, Deep tendon reflexes to the patella and achilles were intact bilaterally, Able to detect 5.0 Cameron-Lamberto monofilament wire ORTHOPEDIC: Muscle strength was intact to the Extensor Hallucis Longus, Flexor Hallucis Longus, Tibialis Anterior, Achilles Tendon, and Posterior Tibial Tendon. Range of motion was intact to all joint and tendons of the foot and ankle. Her 2nd toe was longer then her hallux. Digiti quinti varus THE FOLLOWING NAILS WERE THI CKENED, YELLOWED AND LUSTERLESS Right- 5th CALLUS 1st IPJ 2nd PIPJ 3rd PIPJ B/L
--- OUTSIDE RECORDS SUMMARY | 2025-02-10 18:24 | XMS_ITS ---
Author Organization [id number] Care Team Providers Care Career Consultant Name Role Phone CAITY KIMBALL Unavailable Unavailable CAITY KIMBALL Primary Care Provider Unavailabl e Problems Problem Type Problem Status Onset Date Resolution Date Documentation Date Authors Informants Encounter for general adult medical examination without abnormal findings [facility] Encounters Encounter Location Date Diagnoses Problems Providers Authors Informants [facility] 4 11:30:28 AM Attender: CAITY KIMBALL ([facility]) [facility] Insurance Providers Payer name Policy type / Coverage type Policy ID Covered republican ID Covered republican's relationship to roldan Policy Roldan Plan Information [facility] Child SVETLANA JEFFREY [id number]
--- OUTSIDE RECORDS SUMMARY | 2025-02-10 18:24 | XMS_ITS ---
Author Organization [facility] Address [address] [place] [address] Care Team Providers Care Chronometer Assembler Name Role Phone Michael Person M.D. Primary Care Provider Omar Garcia [phone] REASON FOR VISIT calluses Encounters Encounter Location Date Provider Diagnosis [facility] [address] [place] [address] 06/15/2024 Omar Louise Plan Of Treatment No Information Progress Notes * Jessika QUIROZDOB:2005 ( 19 yo F)Acc No.[id number]:06/15/2024 Progress Notes Patient:Jessika IRVING Appointment Provider:?Omar Louise DPM :2005???Age:18 Y???Sex:Female D ate:06/15/2024 Address:[address] [place], [place] [id number] Pcp:Michael Person M.D. Subjective: * Chief Complaints: * ???1. Calluses. * Active Problem List B35.3 Tinea pedis of both feet Modified On:03/18/2024/U Status:confirmed B35.1 Onychomycosis Modified On:03/18/2024U Status:confirmed M20.41 Hammer toe of right foot Modified On:03/18/2024/U Status:confirmed R23.8 Bullae Modified On:05/23/2024W/U Status:confirmed * Medical History:? Objective: * Vitals:? Assessment: Plan: * Treatment: * * Electronic signature of Kareem Louise DPM on 02/10/2025 at 06:24 PM EDT Sign off status: Pending * Appointment Provider:?Lita Louise DPM Date:?06/15/2024 Generated for Printing/Faxing/eTransmitting on:?02/10/2025 06:24 PM EDT
--- OUTSIDE RECORDS SUMMARY | 2025-02-10 18:24 | XMS_ITS ---
Author Organization [facility] Address [address] [place] [address] Care Team Providers Care Wound/Ostomy Nurse Name Role Phone Michael Person M.D. Primary Care Provider Omar Garcia [phone] REASON FOR VISIT Calluses Encounters Encounter Location Date Provider Diagnosis [facility] [address] [place] [address] 11/19/2023 Omar Louise Plan Of Treatment No Information Progress Notes * Jessika QUIROZDOB:2005 ( 19 yo F)Acc No.[id number]:11/19/2023 Progress Notes Patient:Jessika IRVING Appointment Provider:?Omar Louise DPM :2005???Age:18 Y???Sex:Female D ate:11/19/2023 Address:[address] [place], [place] [id number] Pcp:Michael Person M.D. Subjective: * Chief Complaints: [...] status: Pending * Appointment Provider:?Lita Louise DPM Date:?11/19/2023 Generated for Printing/Faxing/eTransmitting on:?02/10/2025 06:24 PM EDT
--- OUTSIDE RECORDS SUMMARY | 2025-02-10 18:24 | XMS_ITS | Clinical Summary ---
Author Organization [facility] Address [address] [place] [address] Care Team Providers Care Template Cutter Name Role Phone Mia Rios MD Primary Care Provider [phone] Allergies Active Allergy Reactions Criticality Noted Date Comments Peanut-Derived Anaphylaxis,Hives/Urticaria 02/25 Medications desogestrel-et hinyl estradiol (APRI) 0.15-30 MG-MCG TABS Take 1 tablet by mouth daily. Active EPINEPHrine 0.3 MG/0.3ML SOAJ injection Inject 0.3 mg intramuscularly as needed. Active cetirizine (ZYRTEC) 10 MG tablet Take 10 mg by mouth daily. Active Active Problems Problem Noted Date Diagnosed Date Anxiety 03/18/2023 COVID-19 virus infection 10/202103/18/2023 Seasonal allergies 03/18/2023 Overview (03/18/2023): Allergens: Pollen Causes: watery eyes, runny nose Immunizations Immunization Administration Dates Next Due Covid-19 MRNA (PFIZER) Vaccine 10/23/2021,2020,02/16/2021 DTAP VACCINE, < 7 YR, 66332 09/29/2008,0 03/17/2006,03/06/2005,01/02,2004 FLU, SPLIT, >= 3 YR, 07532 08/08/2022 HEP A, PED/ADOL, 2 DOSE, 49342 03/24/2007,2005 HEP B, PED/ADOL, 3 DOSE, 51825 09/02/2005,2004,2004 HIB, 4 DOSE, PRP-T CONJ, 42913 6,03/06/2005,01/02/2005,10/17 Human Papillomavirus 9-veronique t vaccine (Gardasil 9 CPT code 83624) 09/10/2017,09/11/2016 MENINGOCOCCAL CONJUGATE, 31785 09/19/2020,2014 MENINGOCOCCAL VAC B (RECOMB) IM DWAIN 12/12/2021, 11/09/2021 MMR VIRUS VACCINE, 66099 09/29/2008,12/09/2005 PNEUMOCOCCAL (CONJUGATE), PED, 47419 ,03/12/2005,01/02/2005,10/17 POLIOVIRUS VACCINE IPV, 14849 09/29/2008 ,03/18/2006,03/12/2005,11/20 TDAP VACCINE, 59603 09/07/2014 VARICELLA VIRUS VACCINE, 46426 09/29/2008,2004 Family History Medical History Relation Comments High Cholesterol Father Diabetes Grandfather - Maternal Heart Disease Grandfather - Maternal High Cholesterol Grandfather - Maternal Heart Disease Grandfather - Paternal High Cholesterol Grandfather - Paternal High Cholesterol Grandmother - Maternal Cancer - breast Grandmother - Paternal High Cholesterol Grandmother - Paternal Cancer - breast Mother Anxiety disorder Other found on both m aternal and paternal sides Depression Other found on both ma ternal and paternal sides Thyroid Disease Other maternal aunt Type 1 Diabetes Other maternal uncle Relation Status Comments Father Grandfather - Maternal Grandfather - Paternal Grandmother - Maternal Grandmother - Paternal Mother Other Social History Tobacco Use Types Packs/Day Years [...] on file Sexual Orientation Not on file Plan of Treatment Health Maintenance Due Date Last Done Comments ID: ( A ) HIV SCREENING 2019 ID: ( B ) Hepatitis C Screening 2022 IMM: INFLUENZA (#1) 2024 08/08/2022 IMM: TETANUS (AGE 7-15: TDAP ONLY) 09/07/20242013 IMM: HEPATITIS A VACCINES Completed 03/24/2007, 06/2006 IMM: HPV VACCINES Completed 09/10/2017, 09/11/2016 IMM: MenACWY (Menactra,Menveo) Completed 09/19/2020 , 09/11/2015 IMM: MenB (Bexsero, Trumenba) Completed 12/12/2021, 11/09/2021 Insurance [facility] Care Teams Template Cutter Relationship Specialty Start Date End Date Mia Rios MD [address] [place] [address] [address] P[facility] - General Family Practice 03/18/23
--- OUTSIDE RECORDS SUMMARY | 2025-02-10 18:24 | XMS_ITS ---
Author Organization [facility] Address [address] [facility] [address] [place] [address] Care Team Providers Care Primary School Principal Name Role Phone Tona Perdomo Unavailable [phone] Allergies No Known Allergies Results Component Value Reference Range Notes Chlamydia/Gonorrhea, DENNY (Ap gisela/PAP) Reviewed date:11/04/2023 09:45:42 AM Interpretation:Negative Performing Lab:[facility], [facility], [facility] CLIA ID [id number], [address] [place] [address], [address] [place] [address], Director - Gumaro Moffett MD, PhD Notes/Report: Specimen Type: Aptima Vaginal Swab Source vaginal C. trachomatis NEGATIVE NEGATIVE N. Gonorrhoeae NEGATIVE NEGATIVE The Aptima Co mbo 2 Assay is a FDA-cleared, target amplification nucleic acid probe test that utilizes target capture for the in vitro qualitative detection and differentiation of ribosomal RNA (rRNA) from Chlamydia trachomatis and/or Neisseria gonorrhoeae to aid in the diagnosis of chlamydial and/or gonococcal urogenital disease using the Altheimer System as specified. REASON FOR VISIT Annual New Patient Medications Medication SIG (Take, Route, Fr equency, Duration) Notes Start Date End Date Status Pantoprazole Sodium Active Zoloft Active Social History Tobacco Use: Social History Observation Description Date Details (start date - stop date) Never Smoker NA - NA Sex Assigned At : Social History Observation Description Sex Assigned At Female AUDIT-C (Standard) Question Answer Notes Did you have a drink containing alcohol in the p ast year? No Did you have a drink containing alcohol in the p ast year? No Points 0 Interpretation Negative Interpretation Negative Tobacco Control (Standard) Question Answer Notes Tobacco use: Nonsmoker Vital Signs Blood pressure systolic 120 mm Hg 10/29/19 24 Blood pressure diastolic 72 mm Hg 024 Weight 129 lbs 10/29/2023 Encounters Encounter Location Date Provider Diagnosis [facility]zena Miller 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 Z01.419 ; Contraceptive surveillance Z30.40 and Encntr screen for infections w sexl mode of transmiss Z11.3 Assessments Encounter Date Diagnosis (ICD Code) Assessment Notes Treatment Notes Treatment Clinical Notes Section Notes 10/29/2023 Reel Worker exam without abnormal findings (ICD-10 - Z01.419) 10/29/2023 Contraceptive surveillance (ICD-10 - Z30.40) Considering progestin IUD, reviewed insertion scheduling instructions 10/29/2023 Encntr screen for infections w sexl mode of transmiss (ICD-10 - Z11.3) Plan Of Treatment Treatment Notes Assessment Notes Contraceptive surveillance Considering p rogestin IUD, reviewed insertion scheduling instructions Next Appt Details Follow Up: 1 Year,Asia wilson n: routine Provider Name:Nava Orellana, Андрей 11/01/2025 03:15:00 PM, [address] [facility] [place], [address], Progress Notes * Jessika QUIROZDOB:2005 ( 18 yo F)Acc No.[id number]:10/29/2023 Progress Note Patient:?Jessika QUIROZ Provider:?Tona Perdomo MD :2005???Age:18 Y???Sex:Female D ate:10/29/2023 Address:[address] [place], [place] [id number] Subjective: * Chief Complaints: * ???Annual New Patient * HPI: ???Annual:?18 year old female presents with c/o Annual exam?Tobacco Use?Non-smoker ?Diabetes Screening?Denies risk factors for diabetes (Obesity, Fam Hx, Hx GDM, PCOS) ?Hypertension Screening?Denies Risk factors for hypertension (BP incr, obesity, AA, Comorbid) ?Mental Health?Currently under care of a physician for mental health concerns recently started Zoloft for anxiety ?Menstrual cycles?regular ?Intermenstrual bleeding?no ?Gynecologic symptoms?none ?Sexually active?yes ?Contraception?none Just stopped bcp - feels she was having GI side effects but may have also been attributable to anxiety. Does feel better overall off of bcp. Considering a progestin IUD ?Presents for annual exam accompanied by her mother She denies any specific construction equipment overhauler concerns Jessika and mom understand a routine exam is optional at this time, she would like to proceed. * ROS:?General/Constitutional:?Patient denies?change of weight, fever, and fatigue.?ENT:?Patient denies?difficulty swallowing.?Endocrine:?Patient denies?thyroid problems.?Respiratory:?Patient denies?shortness of breath and respiratory symptoms.?Breast:?Patient denies?breast lumps, breast pain, nipple discharge.?Cardiovascular:?Patient denies?chest pain and dyspnea.?Gastrointestinal:?Patient denies?abdominal pain and change in bowel habits.?Genitourinary:?Patient denies?abnormal vaginal bleeding, vaginal discharge, dyspareunia, and UTI symptoms.?Musculoskeletal:?Patient denies?painful joints, muscle weakness.?Skin:?Patient denies?new lesions and rash.? * Medical History:? * Reel Worker History:?Last pap smear date?Never had a pap smear.?Menstruation: ?Age of Onset?12 ?LMP:?10/24/2023 ?Time between periods:?21 to 32 days apart ?Duration:?2-7 days ???Sexual activity ?Currently sexually active?Yes * OB History:? History (GPA)?Total Pregnancies?0 * Surgical History:?Denies Pas t Surgical History * Hospitalization/Major Diagno stic Procedure:?Denies Past Hospitalization * Family History:?Mother: diag nosed with Breast cancer.?Paternal Grand Mother: diagnosed with Breast cancer.? * Social History:?Tobacco Use:?Tobacco Control (Standard)?Tobacco use:?Nonsmoker ???Drugs/Alcohol:?Drugs?Have you used drugs other than those for medical reasons in the past 12 months??No ???Drug/Alcohol:?AUDIT-C (Standard)?Did you have a drink containing alcohol in the past year??No ?Did you have a drink containing alcohol in the past year??No ?Points?0 ?Interpretation?Negative ?Interpretation?Negative * Medications:?TakingPantopraz ole Sodium Zoloft Medication List reviewed and reconciled with the patientTaking Pantoprazole Sodium Taking Zoloft Medication List reviewed and reconciled with the patient * Allergies:?N.K.D.A.yes[Aller gies Verified] Objective: * Vitals:?BP:120/72mm Hg, Wt:1 29lbs, Wt-k.51, Wt %: 54.6 %. * Examination: ???General Examination: ?GENERAL APPEARANCE:?pleasant, well nourished, in no acute distress.?EYES:?non icteric, no pallor.?NECK/THYROID:?no thyromegaly or apparent thyroid nodules.?LYMPH NODES:?normal, no palpable pelvic lymphadenopathy.?SKIN:?warm and dry.?HEART:?no murmurs, regular rate and rhythm.?LUNGS:?normal respiratory effort.?BREASTS:?nipples unremarkable, no axillary adenopathy, no dimpling, no lumps palpable bilaterally, no nipple discharge, no skin changes.?ABDOMEN:?soft, nontender, nondistended.?Gynecological: ?BLADDER:?normal.?EXTERNAL GENITALIA:?normal, no erythema, no skin discoloration.?URETHRAL MEATUS:?normal.?URETHRA:?normal, no masses, non-tender.?VAGINA:?normal healthy pink mucosa without any lesions.?CERVIX:?no lesions or discharge or bleeding, normal appearing, without evidence of masses or lesions.?UTERUS:?normal mobility, non-tender, normal size, shape and consistency.?ADNEXA:?no masses or tenderness bilaterally.?Appeals Coordinator: ?Appeals Coordinator Status?Appeals Coordinator declined by patient. After thorough counseling on the importance, proceeded with examination with pt's mom present.? Assessment: * Assessment: 1.?Reel Worker exam without abnormal findings - Z01.419 (Primary)?2.?Contraceptive surveillance - Z30.40?3.?Encntr screen for infections w sexl mode of transmiss - Z11.3? Plan: * Treatment: 2.?Encntr screen for infecti ons w sexl mode of transmiss?LAB: Chlamydia/Gonorrhea, DENNY (Aptima/PAP) (Collection Date & Time - 10/29/2023 01:07 PM) * Procedure Codes:? * Preventive Medicine:? ??Counseling for Annual Visits:?Counseled On?Breast Health?monthly self-examinations discussed ?Routine Care?ACOG guidelines for pap smears discussed ?Safe Sex?condom use and prevention of STD discussed ?Nutrition?consistent healthy diet discussed ?Immunizations?immunizations status reviewed and discussed ?Hypertension Screening?risk factors reviewed, and patient referred appropriately ?Diabetes Screening?risk factors reviewed, and patient referred appropriately ?Notes?it is recommended that you visit a Primary Care Provider (PCP) regularly. Your PCP can help you coordinate care among your specialists, as well as make sure you are up to date with wellness exams, immunizations, and preventive screenings. 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 * Procedure Codes:? * Sign off status: Completed Visit Status:?CHK (Check Out ) true * Provider:?Tona Perdomo MD Date:?12/2023 Generated for Mitra meza/Dorcas/eTransmitting on:?02/10/2025 06:23 PM EDT History and Physical Notes * HPI (History of Present Illness) Category Sub-Category Detail Notes Category Not es Annual Annual exam Tobacco Use: Non-smoker Presents for annual exam accompanied by her mother She denies any specific construction equipment overhauler concerns Jessika and mom understand a routine exam is optional at this time, she would like to proceed Diabetes Screening: Denies r isk factors for diabetes (Obesity, Fam Hx, Hx GDM, PCOS) Hypertension Screening: Partha es Risk factors for hypertension (BP incr, obesity, AA, Comorbid) Mental Health: Currently und er care of a physician for mental health concerns recently started Zoloft for anxiety Menstrual cycles: regular Intermenstrual bleeding: no Gynecologic symptoms: none Sexually active: yes Contraception: none Just stopped bcp - f eels she was having GI side effects but may have also been attributable to anxiety. Does feel better overall off of bcp. Considering a progestin IUD Examination Category Sub-Category Detail Notes Category Not es Gynecological CERVIX: no lesions or di scharge or bleeding, normal appearing, without evidence of masses or lesions VAGINA: normal healthy pink mucosa without any lesions EXTERNAL GENITALIA: normal, no erythema, no skin discoloration UTERUS: normal mobility, non -tender, normal size, shape and consistency ADNEXA: no masses or tendern ess bilaterally URETHRA: normal, no masses, n on-tender URETHRAL MEATUS: normal BLADDER: normal General Examination GENERAL APPEARANCE: pleasant , well nourished, in no acute distress EYES: non icteric, no pall or NECK/THYROID: no thyromegaly or ap parent thyroid nodules HEART: no murmurs, regular rate and rhythm LUNGS: normal respiratory e ffort ABDOMEN: soft, nontender, non distended SKIN: warm and dry BREASTS: nipples unremarkable , no axillary adenopathy, no dimpling, no lumps palpable bilaterally, no nipple discharge, no skin changes LYMPH NODES: normal, no palpable pelvic lymphadenopathy Appeals Coordinator Appeals Coordinator Status Appeals Coordinator decli brittany by patient. After thorough counseling on the importance, proceeded with examination with pt's mom present
--- OUTSIDE RECORDS SUMMARY | 2025-02-10 18:24 | XMS_ITS | Patient Health Record ---
Author Organization [facility] Address [address] [address] [place] [address] Care Team Providers Care Social Work Professor Name Role Phone Tona Perdomo Unavailable [phone] Allergies No Known Allergies Reason For Referral No Information Medications Medication [...] (Standard) Question Answer Notes Tobacco use: Nonsmoker Plan Of Treatment Next Appt Details Provider Name:Nava Orellana, 0 11/01/2025 03:15:00 PM, [address] [facility] [place], [address], Insurance Providers Payer Name Payer Address Payer Phone Subscriber Number Group Number Insured Name Patient Relationship to Insured Coverage Start Date Coverage End Date [facility] [address] [place], [place] [id number] Jessika Quiroz Self - patient is the insured
== END 2025-02-10 16:32 | disposition home or self-care (01) ==
LOC: HO.ED 16:31
PROVIDERS: Emergency Provider Emergency Medicine
DX: T78.40XA Allergy, unspecified, initial encounter (principal); R20.2 Paresthesia of skin; X58.XXXA Exposure to other specified factors, initial encounter
CPT/HCPCS: 99282; 99283